=== PATIENT | male | born 1995 | race Caucasian/White ===

== ENCOUNTER 2019-01-02 04:28 | Emergency (ER) | payer SELFPAY ==
[~2019-01-02] VITALS: Ht 180.3 cm; Wt 60.0 kg
[2019-01-02] MEDS ORDERED: ONDANSETRON ODT 4 MG ONE ×2 (04:29→05:29)
[2019-01-02] MEDS ORDERED: ONDANSETRON ODT 4 MG PO ONE ×3 (05:00→05:30)
--- NOTE | 2019-01-02 05:39 | NUR ---
PT REMEDICATED FOR COMPLAINT OF CONTINUED NAUSEA.
--- NOTE | 2019-01-02 06:27 | NUR ---
PT NOW SLEEPING. NAD.
[2019-01-02 06:39] VITALS: BP 110/74
--- NOTE | 2019-01-02 07:13 | NUR ---
PT SITTING UP IN BED. NO NEEDS AT THIS TIME.
--- NOTE | 2019-01-02 08:33 | NUR ---
patient requesting to go home. ambulatory with steady gait. refusing meal. offered bus pass but electing to walk instead.
--- NOTE | 2019-01-02 08:42 | NUR ---
CARE FOR DC ONLY PROVIDED. PT SITTING UP ON A CHAIR. NO ACUTE DISTRESS NOTED. NO IV TO DC. REVIEWED DC INSTRUCTIONS WITH PT, UNDERSTANDING VERBALIZED. PT LEFT AMB, GAIT STEADY
== END 2019-01-02 08:45 | disposition home or self-care (01) ==
LOC: ED 08:30
DX: F10.120 Alcohol abuse with intoxication, uncomplicated (principal)
CPT/HCPCS: 99283; Q0162